=== PATIENT | male | born 1965 | race Caucasian/White ===

== ENCOUNTER 2017-02-18 05:27 | Emergency (ER) | payer BC ==
[2017-02-18] MEDS ORDERED: CLEOCIN HCL300 MG PO (05:44)
[2017-02-18] MEDS ORDERED: DEPAKOTE ER250 M1 PO (05:45)
[2017-02-18] MEDS ORDERED: NOR10T PO (05:46)
[2017-02-18 06:36] LABS: BASOPHIL % 0.4 % (0-2); PLATELET COUNT 273 x10^3mcL (130-400); RED CELL DISTRIBUTION WIDTH 13.4 % (11.5-14.5)
[2017-02-18 06:43] LABS: CALCIUM 8.7 mg/dL (8.5-10.1); CHLORIDE SERUM 106 mmol/L (98-107); GFR1 > 60 mL/min; GLUCOSE SERUM 91 mg/dL (74-106); POTASSIUM SERUM 4.3 mmol/L (3.5-5.1); SODIUM SERUM 142 mmol/L (136-145)
[2017-02-18 06:47] LABS: ALBUMIN 3.8 g/dL (3.4-5.0); ALKALINE PHOSPHATASE 51 U/L (46-116); ALT/SGPT 35 U/L (16-63); AST/SGOT 18 U/L (15-37); BILIRUBIN TOTAL 0.6 mg/dL (0.20-1.00); LIPASE 640 IU/L (73-393); TOTAL PROTEIN, SERUM 6.9 g/dL (6.4-8.2); TRIGLYCERIDES 67 mg/dL (<150)
[2017-02-18 06:48] LABS: CHOLESTEROL 242 mg/dL (<200); CHOLESTEROL/HDL RATIO 3.1; HDL CHOLESTEROL 78 mg/dL (40-60)
[2017-02-18 06:52] LABS: microscopic required? NO
[2017-02-18 06:56] LABS: FREE T4 1.16 ng/dL (0.76-1.46); FREE THYROXINE INDEX 3.5 ug/dL (1.4-4.5); T3 TOTAL 1.3 ng/mL; T4(THYROXINE) 9.1 ug/dL (4.7-13.3)
[2017-02-18 07:07] LABS: UA SPECIFIC GRAVITY 1.015 (1.005-1.035); urine erythrocyte NEGATIVE (NEGATIVE)
[2017-02-18 09:06] VITALS: BP 125/63
== END 2017-02-18 09:07 | disposition home or self-care (01) ==
LOC: ED 05:27
PROVIDERS: Specialist
DX: R07.9 Chest pain, unspecified (principal); K85.90 Acute pancreatitis without necrosis or infection, unspecified
CPT/HCPCS: 83880; 84439; J7030; Q0092